=== PATIENT | female | born 1970 | race Caucasian/White ===

== ENCOUNTER 2019-10-20 16:24 | Outpatient (CLI) | payer OTHER, SELFPAY ==
--- NOTE | ~2019-10-20 | XR_ITS ---
EXAMINATION: XR foot LT min 3V EXAM DATE: 10/20/2019 16:48 INDICATION: No known recent injury provided at this time. Pain of the left foot. Symptoms 2 weeks. TECHNIQUE: Left foot dorsoplantar, lateral and oblique projections obtained and reviewed. There is n o prior study for comparison. FINDINGS: Left metatarsal bones unremarkable. No periosteal reaction or band of sclerosis to sugges t subacute stress fracture. There are no acute fractures or dislocations identified. There is no s ubcutaneous gas. The soft tissue is unremarkable. There are no radiopaque foreign bodies. There a re no bony erosions identified. IMPRESSION: 1. Unremarkable XR foot LT min 3V exam. Reviewed, dictated and finalized at location A.
== END 2019-10-20 16:25 | disposition home or self-care (01) ==
LOC: ANHIMG 16:29
PROVIDERS: PCP Family Medicine; Visit Provider Physician Assistant
DX: M79.673 Pain in unspecified foot (principal)
CPT/HCPCS: 73630

== ENCOUNTER 2020-01-29 08:44 | Emergency (ER) | payer OTHER, SELFPAY ==
--- NOTE | ~2020-01-29 | XR_ITS ---
EXAMINATION: XR ribs RT 2V w CXR 2V DATE: 01/29/2020 10:29 INDICATION: Right posterior rib pain. Cough. TECHNIQUE: Frontal and lateral views of the chest and 3 views of the right ribs were obtained. COMPARISON: Chest 2 views 02/07/2018 FINDINGS: CHEST TWO VIEWS: There is mild scarring at right lung apex. No pleural effusion or pneumothorax. The heart size is normal. There is an old healed fracture of right clavicle. Surgical clips in the right upper quadrant are likely from cholecystectomy. RIGHT RIBS: There is no rib fracture. IMPRESSION: 1. No rib fracture. 2. Mild scarring at right lung apex. Reviewed, dictated and finalized at location A.
[2020-01-29 08:54] VITALS: BP 110/87; PULSE 94; RESP 18; TEMP 37.3; O2SAT 100
--- NOTE | 2020-01-29 10:18 | ECG_ITS ---
Measurements Intervals [place] Rate: 73 P: 63 NC: 182 QRS: 15 QRSD: 99 T: 41 QT: 405 QTc: 449 Interpretive Statements SINUS RHYTHM BASELINE WANDER- I, II, III, AVL, AVF, V1-V6 NORMAL ECG Electronically Signed On 01-29-2020 15:25:35 CDT by Aditya Almaguer D.O.
--- NOTE | 2020-01-29 10:20 | ED.BACK ---
HPI - Back Pain/Injury General Chief Complaint: Back Pain/Injury Stated Complaint: back pain Time Seen by Provider: 01/29/20 10:08 Source: patient Mode of arrival: ambulatory Limitations: no limitations History of Present Illness HPI Narrative: This is a 49-year-old female that presents the emergency department for right posterior back pain x4 days. Reports intermittent sharp pains that radiate from the right upper back around to the front of her chest. She has been taking her home pain medication with some relief. Reports the pain is intermittent in nature. It is worse with coughing and deep breathing. Denies any injury or trauma. Also reports her shortness of breath worse with exertion. Denies fever, congestion, sore throat, abdominal pain, vomiting, dysuria, weakness, numbness. Related Data Home Medications Medication Instructions Recorded Confirmed carvedilol 3.125 mg tablet 3.125 mg PO Q12H 04/22/19 lisinopril 10 mg tablet 10 mg PO DAILY 12/14/19 Allergies Allergy/AdvReac Type Severity Reaction Status Date / Time No Known Allergies Allergy Verified 01/29/20 08:59 Review of Systems Review of Systems: Narrative: CONSTITUTIONAL: Denies fever ENT: Denies rhinorrhea, congestion, sore throat CARDIOVASCULAR: Denies chest pain, or edema. RESPIRATORY: Reports cough and dyspnea. GASTROINTESTINAL: Denies abdominal pain, nausea, vomiting GENITOURINARY: Denies dysuria SKIN: Denies rash MUSCULOSKELETAL: Reports back pain, joint pain, and myalgia. NEUROLOGIC: Denies numbness, or weakness. All systems reviewed & are unremarkable except as noted in HPI and below PMFSH Past Medical History Medical History (Updated 01/29/20 @ 13:34 by Ritika Salas PA-C) Depression Fibrosis, pulmonary, interstitial, diffuse Heart failure History of fibromyalgia History of gastroesophageal reflux (GERD) Proximal muscle weakness Surgical History Surgical History (Updated 01/29/20 @ 10:22 by Ritika Salas PA-C) History of section History of cholecystectomy History of lumpectomy of left breast History of tubal ligation Social History Social History (Updated 01/29/20 @ 10:21 by Ritika Salas PA-C) Smoking status: Current some day smoker Alcohol intake: current Gender identity (if verbalized by the patient): Female Exam Narrative: Exam Narrative: GENERAL: Well-appearing, well-nourished, and in no acute distress. HEAD: Normocephalic, atraumatic. EYES: EOMI. ENT: Nares clear, no rhinorrhea or epistaxis. Mucous membranes moist. Oropharynx without tonsillar hypertrophy exudate or other lesions. Bilateral TMs pearly giraldo non-bulging NECK: Supple. No adenopathy or masses. CHEST: Clear to auscultation. No respiratory distress. No wheezes rales or rhonchi HEART: Regular rate and rhythm. No murmur heard. Normal peripheral pulses. EXTREMITIES: Normal range of motion. No edema. Strength equal in bilateral upper extremities (5/5) SKIN: Warm, dry, no rash. NEURO: No focal deficits. Alert and oriented x3. PSYCH: Normal mood and affect Course Vital Signs Vital signs: Vital Signs Temperature 99.1 F 01/29/20 08:54 Pulse Rate 94 01/29/20 08:54 Respiratory Rate 18 01/29/20 08:54 Blood Pressure 110/87 01/29/20 08:54 Pulse Oximetry 100 01/29/20 08:54 Temperature 99.1 F 01/29/20 08:54 Pulse Rate 74 01/29/20 13:14 Respiratory Rate 15 01/29/20 13:14 Blood Pressure 135/78 01/29/20 13:14 Pulse Oximetry 100 01/29/20 13:14 MDM - Back Pain/Injury MDM Narrative Medical decision making narrative: Patient presents to the emergency department for right sided thoracic back pain x4 days. No known injury or trauma. Reported some shortness of breath with exertion and cough. She is afebrile and nontoxic-appearing. Oxygen saturation is remained normal on room air. CBC and metabolic panel without concerning findings. Right rib/chest x-ray without acute findings. EKG without concerni
[2020-01-29 11:09] LABS: Basophils Percent Auto 0.7 % (0.2-1.2); Eosinophils Absolute Auto 0.1 K/mm3 (0-0.3); Eosinophils Percent Auto 1.8 % (0-4.4); Hematocrit 42.7 % (37.0-47.0); Hemoglobin 14.2 g/dL (12.0-15.0); Immature Granulocyte Absolute 0.03 K/mm3 (0.00-0.031); Immature Granulocyte Percent A 0.5 % (0-0.5); Lymphocytes Absolute Auto 1.53 K/mm3 (0.9-3.2); Mean Corpuscular HGB Conc 33.3 g/dl (32-36); Mean Corpuscular Hemoglobin 29.6 pg (26-34); Mean Corpuscular Volume 89.1 fl (80-100); Mean Platelet Volume 10.7 fl (7.4-10.4); Monocytes Absolute Auto 0.3 K/mm3 (0.1-0.6); Monocytes Percent Auto 5.5 % (2.6-8.5); Neutrophils Absolute Auto 3.7 K/mm3 (1.3-6.7); Neutrophils Percent Auto 64.5 % (45.5-73.1); Platelet Count Result 355 k/mm3 (150-375); Red Blood Count 4.79 M/mm3 (4.2-5.4); Red Cell Distribution Width 13.6 % (11.5-14.5); White Blood Count 5.7 K/mm3 (4.5-10.0)
[2020-01-29 11:10] VITALS: BP 162/92; PULSE 73; RESP 15; O2SAT 97
[2020-01-29 11:21] LABS: Lactic Acid Reflex 1.8 mmol/L (0.7-2.1)
[2020-01-29 11:22] LABS: Alanine Aminotransferase 24 U/L (4-35); Albumin Level 4.2 g/dL (3.5-5.1); Alkaline Phosphatase 126 U/L (38-126); Anion Gap 5 mmol/L (8-16); Aspartate Amino Transferase 20 U/L (14-36); Bilirubin,Total 0.2 mg/dL (0.2-1.3); Blood Urea Nitrogen 11 mg/dL (7-17); CRP 0.6 mg/dL (<1.0); Calcium 9.2 mg/dL (8.4-10.2); Carbon Dioxide 29 mmol/L (22-30); Chloride 105 mmol/L (98-107); Estimated CRCL calculation 81 ml/min; Estimated Glomerular Filt Rate > 60; Glucose 92 mg/dL (65-105); Potassium 4.3 mmol/L (3.4-5.0); Sodium 139 mmol/L (137-145)
[2020-01-29 11:31] LABS: Troponin I < 0.012 ng/mL (0.000-0.034)
[2020-01-29 11:35] LABS: NT Pro B Type Natriuretic Pept 43 PG/ML (5-100)
[2020-01-29 11:56] LABS: INR 0.9; Prothrombin Time 11.7 Seconds (11.1-14.7)
[2020-01-29 11:57] LABS: Partial Thromboplastin Time 27.2 SECONDS (22.3-36.8)
[2020-01-29 12:07] LABS: D Dimer 0.27 ug/mL (<0.48)
[2020-01-29 13:14] VITALS: BP 135/78; PULSE 74; RESP 15; O2SAT 100
[2020-01-30 12:10] LABS: SARS-CoV-2 RNA PCR Negative
== END 2020-01-29 13:47 | disposition home or self-care (01) ==
PROVIDERS: Physician Assistant; Emergency Provider Emergency Medicine; PCP Family Medicine
DX: M54.6 Pain in thoracic spine (principal); R06.00 Dyspnea, unspecified; Z20.828 Contact with and (suspected) exposure to other viral communicable diseases; M79.7 Fibromyalgia; I50.9 Heart failure, unspecified; K21.9 Gastro-esophageal reflux disease without esophagitis; J84.10 Pulmonary fibrosis, unspecified; F17.200 Nicotine dependence, unspecified, uncomplicated
CPT/HCPCS: 36415; 71046; 71100; 80053; 83605; 83880; 84484; 85025; 85380; 85610; 85730; 86140; 87635; 93005; 96374; 96375; 99284; C9803; J0131; J3360; U0003

== ENCOUNTER 2020-02-09 07:46 | Outpatient (CLI) | payer OTHER, SELFPAY ==
--- NOTE | 2020-02-14 20:21 | WPDPFTINT ---
PFT Interpretation PFT Interpretation: DOS: 02/09/2020 REQUESTING: Dr Phong Merida REASON FOR TESTING: Muscle weakness, pulmonary fibrosis PULMONARY FUNCTION TESTS Results are reliable. Spirometry: FEV1 is 83%, FVC 81%, FEV1% normal. No bronchodilator was given. Lung volumes: TLC 78% consistent with mild restriction. RV is 64% predicted. RV/TLC is 29% showing no air trapping. Airway resistance is 193% increased. Diffusion: DLCO mildly decreased 71%. Flow volume loop: Normal. IMPRESSION: Mild restrictive pattern with mild diffusion impairment. This pattern can be seen in pulmonary fibrosis. No prior studies to compare. Jennifer Borjas MD
== END 2020-02-09 07:47 | disposition home or self-care (01) ==
LOC: ANHPFT 07:48
PROVIDERS: PCP Family Medicine; Visit Provider Family Medicine
DX: J84.10 Pulmonary fibrosis, unspecified (principal)
CPT/HCPCS: 94375; 94726; 94729

== ENCOUNTER 2020-04-03 08:38 | Outpatient (CLI) | payer OTHER, SELFPAY ==
--- NOTE | 2020-04-03 11:00 | NEURO_ITS ---
Patient Number: [id number] Impression: # Complains of pain and numbness of right hand. # Normal nerve conduction study, not diagnostic for Carpal Tunnel Syndrome at this stage. # No ulnar neuropathy. # Normal needle/EMG exam. # Clinical correlation recommended. Nerve Conduction Studies Anti Sensory Summary Table Stim Site NR Peak (ms) P-T Amp (?V) Site1 Site2 Delta-P (ms) Dist (cm) Black (m/s) Left Median Anti Sensory (2-3nd Digit) Wrist 2.6 79.8 Wrist 2-3nd Digit 2.6 14.0 54 Wrist 2.7 35.7 Wrist 2-3nd Digit 2.6 14.0 54 Right Median Anti Sensory (2-3nd Digit) Wrist 2.7 72.4 Wrist 2-3nd Digit 2.7 14.0 52 Wrist 2.7 54.2 Wrist 2-3nd Digit 2.7 14.0 52 Left Radial Anti Sensory (Base 1st Digit) Wrist 2.3 17.1 Wrist Base 1st Digit 2.3 0.0 Right Radial Anti Sensory (Base 1st Digit) Wrist 2.4 29.7 Wrist Base 1st Digit 2.4 0.0 Left Ulnar Anti Sensory (5th Digit) Wrist 2.3 88.5 Wrist 5th Digit 2.3 14.0 61 Right Ulnar Anti Sensory (5th Digit) Wrist 2.2 67.6 Wrist 5th Digit 2.2 14.0 64 Motor Summary Table Stim Site NR Onset (ms) O-P Amp (mV) Site1 Site2 Delta-0 (ms) Dist (cm) Black (m/s) Left Median Motor (Abd Poll Brev) Wrist 3.0 1.3 Elbow Wrist 4.9 28.0 57 Elbow 7.9 0.7 Right Median Motor (Abd Poll Brev) Wrist 2.8 4.4 Elbow Wrist 4.7 27.0 57 Elbow 7.5 2.5 Left Ulnar Motor (Abd Dig Minimi) Wrist 2.5 7.8 A Elbow Wrist 4.5 30.0 67 A Elbow 7.0 6.0 Right Ulnar Motor (Abd Dig Minimi) Wrist 2.1 7.1 A Elbow Wrist 4.7 28.0 60 A Elbow 6.8 6.5 F Wave Studies NR F-Lat (ms) L-R F-Lat (ms) Left Median (Mrkrs) (Abd Poll Brev) 24.69 2.45 Right Median (Mrkrs) (Abd Poll Brev) 27.13 2.45 Left Ulnar (Mrkrs) (Abd Dig Min) 25.78 0.53 Right Ulnar (Mrkrs) (Abd Dig Min) 26.32 0.53 EMG Side Muscle Nerve Root Ins Act Fibs Amp Dur Recrt Comment Right 1stDorInt Ulnar C8-T1 Nml Nml Nml Nml Nml Right Ext Indicis Radial (Post Int) C7-8 Nml Nml Nml Nml Nml Right Ext Digitorum Radial (Post Int) C7-8 Nml Nml Nml Nml Nml Right BrachioRad Radial C5-6 Nml Nml Nml Nml Nml Right PronatorTeres Median C6-7 Nml Nml Nml Nml Nml Right Abd Poll Brev Median C8-T1 Nml Nml Nml Nml Nml Left 1stDorInt Ulnar C8-T1 Nml Nml Nml Nml Nml Left Ext Indicis Radial (Post Int) C7-8 Nml Nml Nml Nml Nml Left Ext Digitorum Radial (Post Int) C7-8 Nml Nml Nml Nml Nml Left BrachioRad Radial C5-6 Nml Nml Nml Nml Nml Left PronatorTeres Median C6-7 Nml Nml Nml Nml Nml Left Abd Poll Brev Median C8-T1 Nml Nml Nml Nml Nml Right ABD Dig Min Ulnar C8-T1 Nml Nml Nml Nml Nml Left ABD Dig Min Ulnar C8-T1 Nml Nml Nml Nml Nml Right Anconeus Radial C7-8 Nml Nml Nml Nml Nml Right Brachialis Musculocut C5-6 Nml Nml Nml Nml Nml Left Anconeus Radial C7-8 Nml Nml Nml Nml Nml Left Brachialis Musculocut C5-6 Nml Nml Nml Nml Nml MTDD
== END 2020-04-03 08:39 | disposition home or self-care (01) ==
PROVIDERS: PCP Family Medicine; Visit Provider Family Medicine
DX: M62.81 Muscle weakness (generalized) (principal)
CPT/HCPCS: 95886; 95911